=== PATIENT | female | born 1990 | race Caucasian/White ===

== ENCOUNTER 2017-07-29 18:46 | Emergency (ER) | payer MEDICAID, MEDICARE ==
[~2017-07-29] VITALS: Ht 172.7 cm; Wt 63.5 kg
[2017-07-29] MEDS ORDERED: KETOROLAC TROMETHAMINE 60 MG/2 ML VIAL IM ONE (19:45)
[2017-07-29] MEDS ORDERED: HYDROCODONE/APAP 5MG-325MG TAB PO ONE (20:00)
[2017-07-29 23:26] VITALS: BP 116/79
== END 2017-07-29 21:25 | disposition home or self-care (01) ==
LOC: FSED 18:46
DX: M54.5 Low back pain (principal); S39.012A Strain of muscle, fascia and tendon of lower back, initial encounter; F17.210 Nicotine dependence, cigarettes, uncomplicated
CPT/HCPCS: 72100; 81025; 96372; 99283; J1885